=== PATIENT | female | born 1955 | race Asian ===

== ENCOUNTER → 2017-02-05 | Outpatient (CLI) | payer BC ==
[~2017-02-05] MED LIST: ADALAT CC30 MG; BENICAR HCT 12.1 TA1 PO; BENICAR40 MG PO; CALCIUM WITH D31 CTB PO; FLEXERIL 1010 MG/TAB; K-DUR20 MEQ PO; LIPITOR 40MG TA40 MG; MEDROL4 MG; NORVASC10 MG PO; OMEGA-3 1000 MG1 CAP PO; PERCOCET 325 MG1 TA2 PO; POTASSIUM CHLO10 ME2 PO; PROCARDIA XL 3030 MG PO; TOPROL XL25 MG PO
== END ==
LOC: MC.RAD 14:20
DX: Z12.31 Encounter for screening mammogram for malignant neoplasm of breast (principal)

== ENCOUNTER → 2017-02-05 | Outpatient (CLI) | payer BC ==
[~2017-02-05] VITALS: Ht 157.5 cm; Wt 59.8 kg
[2017-02-05 08:13] VITALS: BP 179/94; PULSE 70
== END ==
LOC: COL.RAD 07:55
DX: E04.9 Nontoxic goiter, unspecified (principal)

== ENCOUNTER → 2017-09-02 | Outpatient (CLI) | payer BC | LOC: COL.RAD 08:46 | DX: E04.1 Nontoxic single thyroid nodule (principal) ==

== ENCOUNTER → 2018-04-27 | Outpatient (CLI) | payer BC | LOC: MC.RAD 14:41 | DX: Z12.31 Encounter for screening mammogram for malignant neoplasm of breast (principal) ==

== ENCOUNTER → 2019-05-01 | Outpatient (CLI) | payer BC | LOC: MC.RAD 07:00 | DX: Z12.31 Encounter for screening mammogram for malignant neoplasm of breast (principal) ==

== ENCOUNTER → 2020-05-02 | Outpatient (CLI) | payer BC | LOC: MC.RAD 09:01 | DX: Z12.31 Encounter for screening mammogram for malignant neoplasm of breast (principal) ==

== ENCOUNTER → 2021-07-18 | Outpatient (CLI) | payer BC | LOC: MC.RAD 06-09 13:45 | DX: Z12.31 Encounter for screening mammogram for malignant neoplasm of breast (principal) ==

== ENCOUNTER → 2021-10-21 | Outpatient (CLI) | payer BC | LOC: COL.RAD 11:35 | DX: E04.2 Nontoxic multinodular goiter (principal) ==

== ENCOUNTER → 2022-09-03 | Outpatient (CLI) | payer BC | LOC: MC.RAD 08:51 | DX: Z12.31 Encounter for screening mammogram for malignant neoplasm of breast (principal) ==

== ENCOUNTER → 2023-09-21 | Outpatient (CLI) | payer BC | LOC: MC.RAD 14:16 | DX: Z12.31 Encounter for screening mammogram for malignant neoplasm of breast (principal) ==